=== PATIENT | female | born 2000 | race African-American/Black ===

== ENCOUNTER 2025-01-03 19:29 | Emergency (ER) | payer OTHER ==
[~2025-01-03] VITALS: Ht 162.6 cm; Wt 59.1 kg
[2025-01-03 19:36] VITALS: BP 105/55; PULSE 84; RESP 16; TEMP 99.3; O2SAT 99
[2025-01-03 19:47] LABS: COVID AG,FIA SOURCE NASAL SWAB
[2025-01-03 19:50] LABS: APPEARANCE,URINE HAZY (CLEAR); BILIRUBIN,URINE NEGATIVE (NEGATIVE); COLOR,URINE YELLOW (YELLOW); GLUCOSE, URINE (UA) NEGATIVE (NEGATIVE); KETONES,URINE TRACE mg/dL (NEGATIVE); LEUKOCYTE ESTERASE ,URINE LARGE (NEGATIVE); NITRATE,URINE NEGATIVE (NEGATIVE); OCCULT BLOOD,URINE MODERATE (NEGATIVE); PH,URINE 6.5 (5.0-8.0); PROTEIN,URINE 30-70 mg/dL (NEGATIVE); SPECIFIC GRAVITIY, URINE 1.026 (1.003-1.030); UROBILINOGEN,URINE <=1.0 mg/dL (<=1.0)
[2025-01-03 19:51] LABS: HCG,QUAL URINE NEGATIVE (NEGATIVE)
[2025-01-03 20:06] LABS: SARS-COV2 (COVID) ANTIGEN,FIA Negative (Negative)
[2025-01-03 20:07] LABS: INFLUENZA TYPE A NEGATIVE FOR TYPE A (NEGATIVE); INFLUENZA TYPE B NEGATIVE FOR TYPE B (NEGATIVE)
[2025-01-03 20:10] LABS: BACTERIA,URINE Few /HPF (None Seen); SQUAMOUS EPITHELIAL CELL,UR Rare /LPF (None Seen); WBC,URINE 51-100 /HPF (0-5)
[2025-01-03 20:11] LABS: RAPID GROUP A STREP NEGATIVE (NEGATIVE)
[2025-01-03] MEDS: SODIUM CHLORIDE 0.9% 1,000 ML IV ONE (22:40)
[2025-01-03] MEDS: CefTRIAXone 1 GM/DEXTROSE 50 ML IV ONE (22:41)
[2025-01-03 23:09] LABS: BASOPHILS % (AUTO) 0.5 % (0.0-2.0); EOSINOPHILS % (AUTO) 0.2 % (1.0-6.0); HEMATOCRIT 38.1 % (36-46); HEMOGLOBIN 12.8 g/dL (12.0-16.0); LYMPHOCYTES # (AUTO) 1.6 K/uL (1.0-4.8); LYMPHOCYTES % (AUTO) 13.4 % (22.0-44.0); MEAN CORPUSCULAR HEMOGLOBIN 29.7 pg (26.0-34.0); MEAN CORPUSCULAR HGB CONC 33.5 G/dL (31.0-37.0); MEAN CORPUSCULAR VOLUME 89 fL (80-100); MONOCYTES # (AUTO) 0.7 K/uL (0.1-1.0); MONOCYTES % (AUTO) 5.8 % (2.0-9.0); NEUTROPHILS # (AUTO) 9.5 K/uL (1.8-7.7); NEUTROPHILS % (AUTO) 80.1 % (40.0-70.0); PLATELET COUNT (AUTO) 231 K/uL (150-450); RED CELL DISTRIBUTION WIDTH 13.5 % (11.5-14.5); WHITE BLOOD COUNT (AUTO) 11.9 K/uL (4.5-11.0)
[2025-01-03 23:16] LABS: ANION GAP 10 mmol/L (8-16); CALCIUM, TOTAL 8.9 mg/dL (8.8-10.5); CARBON DIOXIDE 26 mmol/L (22-29); CHLORIDE 97 mmol/L (98-107); GLOMERULAR FILTR. RATE CALC > 60 mL/min (>60); GLUCOSE,RANDOM 99 mg/dL (70-110); POTASSIUM 3.4 mmol/L (3.5-5.1); SODIUM SERUM 133 mmol/L (136-145); UREA NITROGEN, BLOOD 9 mg/dL (7-18)
[2025-01-04] MEDS ORDERED: CEPH-558 PO (00:12)
== END 2025-01-04 00:38 | disposition home or self-care (01) ==
LOC: EMS 19:29
DX: N39.0 Urinary tract infection, site not specified (principal); Z91.018 Allergy to other foods; Z20.822 Contact with and (suspected) exposure to COVID-19
CPT/HCPCS: 99284; 96365; 87426; 80048; 81001; 85025; 87040; 87077; 87086; 87430; 87804; 36415; 84703; J0696; J7030; 87186